=== PATIENT | male | born 1980 | race Caucasian/White ===

== ENCOUNTER 2016-06-03 00:34 | Emergency (ER) | payer SELFPAY ==
[2016-06-03 00:56] VITALS: BP 129/78; PULSE 87; RESP 17; O2SAT 99
--- NOTE | 2016-06-03 02:05 | ED PDOC ---
HPI: Back Time Seen by Provider: 06/03/16 01:01 Chief Complaint (Nursing): Back Pain Chief Complaint (Provider): left upper back pain, right shoulder pain History Per: Patient History/Exam Limitations: no limitations Onset/Duration Of Symptoms: Days (3 weeks ) Current Symptoms Are (Timing): Intermittent Episodes Additional Complaint(s): 35yo male with no PMHx presents to the ED with c/o intermittent right shoulder and left upper back pain x 3 weeks. Denies injury, taking any OTC medications for pain, fever, cough, SOB, chest pain, n/v/d, heavy lifting, changes in appetite. Past Medical History Reviewed: Historical Data, Nursing Documentation, Vital Signs Vital Signs: Last Vital Signs Temp Pulse 87 06/03/16 00:54 Resp 17 06/03/16 00:54 BP 129/78 06/03/16 00:54 Pulse Ox 99 06/03/16 00:54 - Medical History PMH: No Chronic Diseases - Surgical History Surgical History: No Surg Hx - Family History Family History: States: No Known Family Hx - Social History Current smoker - smoking cessation education provided: No Alcohol: None Drugs: Denies - Home Medications Home Medications: Ambulatory Orders Medication Instructions Recorded Naproxen [Naprosyn] 500 mg PO Q12 #14 tab 06/03/16 - Allergies Allergies/Adverse Reactions: Allergies Allergy/AdvReac Type Severity Reaction Status Date / Time No Known Allergies Allergy Verified 06/03/16 00:56 Review of Systems ROS Statement: Except As Marked, All Systems Reviewed And Found Negative Constitutional: Positive for: Other (no injury, no heavy lifting, no changes in appetite ). Negative for: Fever Cardiovascular: Negative for: Chest Pain Respiratory: Negative for: Cough, Shortness of Breath Gastrointestinal: Negative for: Nausea, Vomiting, Diarrhea Musculoskeletal: Positive for: Shoulder Pain (right ), Back Pain (left upper ) Physical Exam - Reviewed Nursing Documentation Reviewed: Yes Vital Signs Reviewed: Yes - Physical Exam Appears: Positive for: Well, No Acute Distress Head Exam: Positive for: ATRAUMATIC, NORMAL INSPECTION, NORMOCEPHALIC Skin: Positive for: Normal Color, Warm, Dry Eye Exam: Positive for: Normal appearance, EOMI, PERRL ENT: Positive for: Normal ENT Inspection Neck: Positive for: Normal, Painless ROM, Supple Cardiovascular/Chest: Positive for: Regular Rate, Rhythm. Negative for: Murmur , Tachycardia Respiratory: Positive for: Normal Breath Sounds. Negative for: Wheezing, Respiratory Distress Gastrointestinal/Abdominal: Positive for: Normal Exam, Bowel Sounds, Soft. Negative for: Tenderness Back: Positive for: Normal Inspection. Negative for: L CVA Tenderness, R CVA Tenderness, Vertebral Tenderness Extremity: Positive for: Normal ROM. Negative for: Deformity, Swelling Neurologic/Psych: Positive for: Alert, Oriented. Negative for: Motor/Sensory Deficits - ECG O2 Sat by Pulse Oximetry: 99 Pulse Ox Interpretation: Normal (RA) Medical Decision Making Medical Decision Makin: Impression: 35yo male w/ non-specific shoulder and back pain Plan: Patient declines analgesia at present time. CXR, XR right shoulder reassess 0241: XRs show no acute disease. Patient is stable for d/c. Dx: myalgia f/u PCP 1-2 days stable Scribe Attestation: Documented by Therese Garcia acting as a scribe for Tony Frias MD. Provider Scribe Attestation: All medical record entries made by the Scribe were at my direction and personally dictated by me. I have reviewed the chart and agree that the record accurately reflects my personal performance of the history, physical exam, medical decision making, and the department course for this patient. I have also personally directed, reviewed, and agree with the discharge instructions and disposition. Disposition - Clinical Impression Clinical Impression: Myalgia - Patient ED Disposition Is Patient to be Admitted: No Counseled Patient/Family Regarding: Studies Performed, Diagnosis, Need For Followup - Disposition Referrals: [facility] [Outside] Disposition: Routine/Home Disposition Time: 02:41 Condition: STABLE Prescriptions: Naproxen [Naprosyn] 500 mg PO Q12 #14 tab Instructions: Musculoskeletal Pain (ED)
--- NOTE | 2016-06-03 07:54 | CARD ---
APPROVED REPORT EKG Measurement Heart [id number] <Conclusion> Normal sinus rhythm Normal ECG
--- NOTE | 2016-06-03 09:25 | RAD ---
HISTORY: admit COMPARISON: No prior. TECHNIQUE: Chest PA and lateral FINDINGS: LUNGS: No active pulmonary disease. PLEURA: No significant pleural effusion identified. No pneumothorax apparent. CARDIOVASCULAR: Normal. OSSEOUS STRUCTURES: No significant abnormalities. VISUALIZED UPPER ABDOMEN: Normal. OTHER FINDINGS: None. IMPRESSION: No active disease.
--- NOTE | 2016-06-03 09:37 | RAD ---
PROCEDURE: Radiographs of the Right Shoulder HISTORY: pain COMPARISON: No prior. FINDINGS: BONES: Normal. No fracture. JOINTS: Normal. Glenohumeral and acromioclavicular joints preserved. No osteoarthritis. SOFT TISSUES: Normal. OTHER FINDINGS: None. IMPRESSION: Normal radiographs of the right shoulder.
== END 2016-06-03 03:25 | disposition home or self-care (01) ==
LOC: H.ER 00:34
DX: M79.1 Myalgia (principal); M25.511 Pain in right shoulder; M54.9 Dorsalgia, unspecified

== ENCOUNTER 2018-02-02 16:13 | Emergency (ER) | payer OTHER ==
[2018-02-02 16:22] VITALS: BP 132/83; RESP 16; TEMP 98
--- NOTE | 2018-02-02 16:40 | ED PDOC ---
HPI: Influenza Time Seen by Provider: 02/02/18 16:25 Chief Complaint: Cough, Cold, Congestion Chief Complaint (Provider): Cough History Per: Patient Exam Limitations: no limitations Have you had recent travel within the past 21 days to any of: No Onset/Duration Of Symptoms: Days (2 weeks) Additional complaint(s):: Pt. with cough for 2 weeks. No runny nose, congestion, abd pain, nasuea, vomit, diarrhea. Feeling better. Here to get a ppd test. Child tested positive with ppd. Started antibiotics. Family came several days ago and got ppd test. It was neg per mom. Father needs the test now. Past Medical History Reviewed: Nursing Documentation, Vital Signs Vital Signs: Last Vital Signs Temp 98 F 02/02/18 16:19 Pulse 101 H 02/02/18 16:19 Resp 16 02/02/18 16:19 BP 132/83 02/02/18 16:19 Pulse Ox 98 02/02/18 16:19 - Medical History PMH: No Chronic Diseases - Surgical History Surgical History: No Surg Hx - Family History Family History: States: Unknown Family Hx - Living Arrangements Living Arrangements: With Family - Social History Alcohol: None Drugs: Denies - Home Medications Home Medications: Ambulatory Orders Medication Instructions Recorded Naproxen [Naprosyn] 500 mg PO Q12 #14 tab 06/03/16 Clindamycin [Cleocin] 300 mg PO QID #39 cap 12/21/16 Naproxen [Naprosyn] 500 mg PO Q12 PRN #20 tablet 12/21/16 - Allergies Allergies/Adverse Reactions: Allergies Allergy/AdvReac Type Severity Reaction Status Date / Time No Known Allergies Allergy Verified 02/02/18 16:19 Review of Systems ROS Statement: Except As Marked, All Systems Reviewed And Found Negative Respiratory: Positive for: Cough Physical Exam - Reviewed Nursing Documentation Reviewed: Yes Vital Signs Reviewed: Yes - Physical Exam Appears: Positive for: Non-toxic, No Acute Distress Head Exam: Positive for: ATRAUMATIC, NORMAL INSPECTION, NORMOCEPHALIC Skin: Positive for: Normal Color, Warm, DRY Eye Exam: Positive for: EOMI, Normal appearance, PERRL ENT: Positive for: Normal ENT Inspection Neck: Positive for: Normal, Painless ROM Cardiovascular/Chest: Positive for: Regular Rate, Rhythm Respiratory: Positive for: CNT, Normal Breath Sounds Gastrointestinal/Abdominal: Positive for: Normal Exam, Soft. Negative for: Tenderness Back: Positive for: Normal Inspection. Negative for: L CVA Tenderness, R CVA Tenderness Extremity: Positive for: Normal ROM. Negative for: Tenderness Neurologic/Psych: Positive for: Alert, Oriented - ECG O2 Sat by Pulse Oximetry: 98 Pulse Ox Interpretation: Normal - Progress ED Course And Treament: 1648: Will put in PPD. Pt. to fu with clinic or come here in 72 hrs for checking of ppd. Disposition - Clinical Impression Clinical Impression: Cough, PPD screening test - Patient ED Disposition Is Patient to be Admitted: No Counseled Patient/Family Regarding: Diagnosis, Need For Followup - Disposition Referrals: at [place] [Outside] - 02/05/18 Disposition: Routine/Home Disposition Time: 17:33 Condition: STABLE Additional Instructions: Return in 3 days or see your doctor for checking of the ppd test. Instructions: Cough, Adult (DC), TB Screening Test
[2018-02-02] MEDS ORDERED: Tuberculin 5 Units/0.1 ml Inj ID ONE (16:41)
[2018-02-02 18:07] VITALS: PULSE 86; O2SAT 97
== END 2018-02-02 18:00 | disposition home or self-care (01) ==
LOC: H.ER 16:13
DX: R05 Cough (principal); Z11.1 Encounter for screening for respiratory tuberculosis

== ENCOUNTER 2018-03-02 19:59 | Emergency (ER) | payer OTHER ==
[2018-03-02 20:32] VITALS: RESP 18; TEMP 97.5; O2SAT 99
[2018-03-02 22:26] LABS: HEMOGLOBIN 14.2 g/dL (12.0-18.0); MEAN CORPUSCULAR HEMOGLOBIN 28.5 pg (27.0-31.0); MEAN CORPUSCULAR HGB CONC 33.1 g/dL (33.0-37.0); RBC 4.99 Mil/uL (4.40-5.90); RED CELL DISTRIBUTION WIDTH 12.7 % (11.5-14.5); WHITE BLOOD COUNT 6.7 K/uL (4.8-10.8)
[2018-03-02 22:31] LABS: PROTHROMBIN TIME 11.5 Seconds (9.8-13.1)
[2018-03-02 22:33] LABS: PARTIAL THROMBOPLASTIN TIME 38.5 Seconds (25.6-37.1)
[2018-03-02 22:37] LABS: ALB/GLOB RATIO 1.3 (1.0-2.1); ALBUMIN 4.1 g/dL (3.5-5.0); ALT/SGPT 36 U/L (21-72); AST/SGOT 30 U/L (17-59); BLOOD UREA NITROGEN 19 mg/dl (9-20); CALCIUM 9.2 mg/dL (8.4-10.2); GFR NON-AFRICAN AMERICAN > 60
--- NOTE | 2018-03-02 23:13 | ED PDOC ---
HPI: Back Time Seen by Provider: 03/02/18 20:48 Chief Complaint (Nursing): Back Pain Chief Complaint (Provider): Left lower back pain History Per: Patient History/Exam Limitations: no limitations Onset/Duration Of Symptoms: Days Current Symptoms Are (Timing): Still Present Quality Of Discomfort: Sharp (with movement ) Additional Complaint(s): 37 yo male with no medical problems present with left lower back and buttocks pain for 2 days. No medications at home. PT denies similar in the past. No N/V/D. No urinary complaints. Pt also states the last few morning he spits out some blood after using mouthwash in the morning. Pt states this is prior to brushing his teeth. Pt denies any other easy bruising. Past Medical History Reviewed: Historical Data, Nursing Documentation, Vital Signs Vital Signs: Last Vital Signs Temp 97.5 F L 03/02/18 20:29 Pulse 79 03/02/18 20:29 Resp 18 03/02/18 20:29 BP 126/85 03/02/18 20:29 Pulse Ox 99 03/02/18 20:29 - Medical History PMH: Denies: HTN, Chronic Kidney Disease Other PMH: Denies PMHx, denies taking medications at home - Family History Family History: States: Unknown Family Hx - Home Medications Home Medications: Ambulatory Orders Medication Instructions Recorded Naproxen [Naprosyn] 500 mg PO Q12 #14 tab 06/03/16 Clindamycin [Cleocin] 300 mg PO QID #39 cap 12/21/16 Naproxen [Naprosyn] 500 mg PO Q12 PRN #20 tablet 12/21/16 - Allergies Allergies/Adverse Reactions: Allergies Allergy/AdvReac Type Severity Reaction Status Date / Time No Known Allergies Allergy Verified 03/02/18 20:29 Review of Systems ROS Statement: Except As Marked, All Systems Reviewed And Found Negative Constitutional: Negative for: Fever, Chills Cardiovascular: Negative for: Chest Pain, Palpitations Respiratory: Negative for: Cough, Shortness of Breath Gastrointestinal: Positive for: Other (Spitting up blood ). Negative for: Nausea, Vomiting, Abdominal Pain Genitourinary Male: Negative for: Dysuria, Frequency Neurological: Negative for: Weakness, Numbness, Seizures Physical Exam - Reviewed Nursing Documentation Reviewed: Yes Vital Signs Reviewed: Yes - Physical Exam Appears: Positive for: Well, Non-toxic, No Acute Distress Head Exam: Positive for: ATRAUMATIC, NORMAL INSPECTION, NORMOCEPHALIC Skin: Positive for: Normal Color, Warm, DRY Eye Exam: Positive for: Normal appearance ENT: Positive for: Normal ENT Inspection Neck: Positive for: Normal, Painless ROM Cardiovascular/Chest: Positive for: Regular Rate, Rhythm Respiratory: Positive for: Normal Breath Sounds. Negative for: Accessory Muscle Use, Respiratory Distress Gastrointestinal/Abdominal: Positive for: Normal Exam, Soft. Negative for: Tenderness Back: Positive for: Normal Inspection Extremity: Positive for: Normal ROM, Other ((+) pain in left buttocks with leg raise). Negative for: Tenderness, Deformity, Swelling Neurologic/Psych: Positive for: Alert, Oriented - Laboratory Results Result Diagrams: 03/02/18 22:15 03/02/18 22:15 - ECG O2 Sat by Pulse Oximetry: 99 Pulse Ox Interpretation: Normal Medical Decision Making Medical Decision Making: LAbs normal. Disposition - Clinical Impression Clinical Impression: Sciatica, Bleeding gums - Patient ED Disposition Is Patient to be Admitted: No Counseled Patient/Family Regarding: Diagnosis, Need For Followup, Rx Given - Disposition Disposition: Routine/Home Disposition Time: 23:16 Condition: GOOD Additional Instructions: Tylenol may be taken for pain. Instructions: Sciatica (DC), Sciatica Exercises
[2018-03-03 04:47] VITALS: BP 138/72; PULSE 88
== END 2018-03-02 23:25 | disposition home or self-care (01) ==
LOC: H.ER 19:59
DX: M54.30 Sciatica, unspecified side (principal); K06.8 Other specified disorders of gingiva and edentulous alveolar ridge